=== PATIENT | female | born 1970 | race Caucasian/White ===

== ENCOUNTER 2017-03-13 19:59 | Emergency (ER) | payer OTHER ==
[~2017-03-13 19:59] MED LIST: NAPROSYN500 M1 PO
[2017-03-13 20:40] LABS: ABSOLUTE BASOPHIL COUNT 0.1 /CUMM (0.0-0.2); ABSOLUTE EOSINOPHIL COUNT 0.1 /CUMM (0.0-0.7); ABSOLUTE GRANULOCYTE CT 3.2 /CUMM (1.4-6.5); ABSOLUTE LYMPH COUNT 2.6 /CUMM (1.2-3.4); ABSOLUTE MONOCYTE COUNT 0.7 /CUMM (0.10-0.60); EOSINOPHIL % 1.7 % (0-5); GRANULOCYTE % 48.4 % (42.2-75.2); HEMATOCRIT 34.5 % (37-47); MEAN CORPUSCULAR HGB 29.3 PG (27.0-31.0); MEAN CORPUSCULAR HGB CONC 33.2 G/DL (33.0-37.0); MEAN CORPUSCULAR VOLUME 88.5 FL (81.0-99.0); MEAN PLATELET VOLUME 6.2 FL (7.4-10.4); PLATELET COUNT 406 /CUMM (130-400); RBC DISTRIBUTION WIDTH 13.5 % (11.5-14.5); WHITE BLOOD CELL COUNT 6.6 /CUMM (4.8-10.8)
--- NOTE | 2017-03-13 21:43 | ED GENERAL ADULT ---
History of Present Illness General Chief Complaint: General Adult Stated Complaint: PT DIZZY AND WHEN SHE BREATH CHEST HURT Source: patient, family Exam Limitations: no limitations Vital Signs & Intake/Output Vital Signs & Intake/Output Vital Signs Date Time Temp Pulse Resp B/P B/P Pulse O2 O2 Flow FiO2 Mean Ox Delivery Rate 03/13 2241 96.0 50 16 108/59 99 Room Air 03/136 97 Room Air Room Air 03/13 2009 98.2 71 20 117/75 95 Room Air ED Intake and Output 03/14 0000 03/13 1200 Intake Total Output Total Balance Patient 140 lb Weight Allergies Coded Allergies: No Known Allergies (07/06/16) Reconcile Medications Naproxen (Naprosyn) 500 MG TABLET 1 TAB PO BID PRN pain and inflammation Triage Note: PER PT FOR GREATER THEN 1 WEEK DIZZYNESS AND HEART POUNDING FEELS LIKE CANT GET IN A DEEP BREATH, PT IS A AVID HIKER, AND HAS NOT SOUGHT MEDICAL ATTENTION BUT DOES NOT FEEL ANY BETTER. Triage Nurses Notes Reviewed? yes Onset: Afternoon Duration: day(s): Timing: recent history Severity: moderate No Modifying Factors: none LMP (ages 10-50): LAST WEEK HPI: 46-year-old female presents to emergency department complaining of dizziness. Patient states that dizziness began one week ago and was associated with chest pressure, dyspnea, and heart palpitations. Her symptoms have been intermittent however persistent for the past week. Chest pressure is described as mild, substernal, associated only with deep inspiration. She also complains of sharp stabbing joint paints described as "nerve pains". She also notes uncomfortable feeling in her throat with swallowing however no regurgitation or vomiting. She is an avid hiker and has Pulled four Ticks off Her This Month. She denies rash, fevers, chills, recent infections, dysuria, cough, changes in bowel movements. (TYLER ZUNIGA) Past History Travel History Traveled to [place] past 21 day No Medical History Any Pertinent Medical History? see below for history Neurological: NONE EENT: NONE Cardiovascular: NONE Respiratory: NONE Gastrointestinal: NONE Hepatic: NONE Renal: KIDNEY INFECTIONS Musculoskeletal: TAILBONE FX Psychiatric: NONE Endocrine: NONE Blood Disorders: NONE Cancer(s): NONE GEOLOGICAL TECHNICAL OFFICER/Reproductive: NONE Surgical History Surgical History: non-contributory Psychosocial History What is your primary language Kyrgyz Tobacco Use: Never used Family History Family History, If Any: grandfather, , Age 58; Cause: Myocardial infarct. Hx Contributory? Yes (TYLER ZUNIGA) Review of Systems Review of Systems Constitutional: Reports: see HPI. EENTM: Reports: no symptoms. Respiratory: Reports: see HPI. Cardiovascular: Reports: see HPI. GI: Reports: see HPI. Genitourinary: Reports: no symptoms. Musculoskeletal: Reports: see HPI. Skin: Reports: no symptoms. Neurological/Psychological: Reports: see HPI. Hematologic/Endocrine: Reports: no symptoms. Immunologic/Allergic: Reports: no symptoms. All Other Systems: Reviewed and Negative (TYLER ZUNIGA) Physical Exam Physical Exam General Appearance: well developed/nourished, no apparent distress, alert, awake Head: atraumatic, normal appearance Eyes: Bilateral: normal appearance, PERRL. Ears, Nose, Throat: hearing grossly normal Neck: normal inspection, supple, full range of motion Respiratory: normal breath sounds, no respiratory distress, lungs clear Cardiovascular: regular rate/rhythm Gastrointestinal: normal bowel sounds, soft, non-tender, no organomegaly Back: normal inspection, normal range of motion Extremities: normal inspection, normal range of motion Neurologic/Psych: no motor/sensory deficits, awake, alert, oriented x 3 Skin: intact, normal color, no evidence of rash Core Measures ACS in differential dx? Yes CVA/TIA Diagnosis: No Severe Sepsis Present: No Septic Shock Present: No (TYLER ZUNIGA) Progress Differential Diagnoses I considered the following diagnoses in my evaluation of the patient: [PE, ACS, Lyme disease, viral illness, vertigo, dehydration] Plan of Care: Orders Procedure Date/time Status TROPONIN LEVEL 03/13 2330 Complete EKG 03/13 2330 Active Add-on Test (ER Only) 03/13 2110 Active LYME TITRE 03/13 2034 Active TROPONIN LEVEL 03/13 2011 Complete HUMAN BETA HCG SCREEN 03/13 2011 Complete COMPREHENSIVE METABOLIC PANEL 03/13 2011 Complete CBC WITHOUT DIFFERENTIAL 03/13 2011 Complete EKG 03/13 2010 Active Laboratory Tests 03/13/17 2345: Troponin I < 0.01 03/13/172033: Anion Gap 6, Estimated GFR > 60, BUN/Creatinine Ratio 17.1, Glucose 99, Calcium 9.0, Total Bilirubin 0.3, AST 36, ALT 18, Alkaline Phosphatase 36, Troponin I < 0.01, Total Protein 6.4, Albumin 3.6, Globulin 2.8, Albumin/Globulin Ratio 1.3, Total Beta HCG NEGATIVE, CBC w Diff NO MAN DIFF REQ, RBC 3.90 L, MCV 88.5, MCH 29.3, RDW 13.5, MPV 6.2 L, Gran % 48.4, Lymphocytes % 39.0, Monocytes % 9.9 H, Eosinophils % 1.7, Basophils % 1.0, Absolute Granulocytes 3.2, Absolute Lymphocytes 2.6, Absolute Monocytes 0.7 H, Absolute Eosinophils 0.1, Absolute Basophils 0.1, PUBS MCHC 33.2, Lyme Disease Antibody Pending 03/13/172010: D-Dimer High Sensitivty Cancelled Patient is laying in bed comfortably, she is in no acute distress. She appears calm and rested. Her well's criteria score was 0. She was perc negative. Suspicion for DVT/PE is low at this time. Her first troponin is within normal limits. She was discussed with Dr. Samayoa. Second troponin will be ordered. Lyme titer drawn given exposure to ticks, tick embedded in the skin for possibly multiple days. Her dizziness is associated with movement such as bending over and intermittent, suspicion is low for a central cause of this dizziness such as stroke. (TYLER ZUNIGA) Diagnostic Imaging: Viewed by Me: Radiology Read. Discussed w/RAD: Radiology Read. Radiology Impression: EXAM TYPE: RAD - XRY-PORTABLE CHEST XRAY EXAMINATION: XR PORTABLE CHEST CLINICAL INFORMATION: Chest pain. COMPARISON: None TECHNIQUE: Portable frontal view of the chest was obtained. 9:33 PM FINDINGS: No significant abnormality is noted involving the heart, lungs, mediastinum, bony thorax or soft tissues. IMPRESSION: Unremarkable examination. Initial ED EKG: normal intervals, normal p-waves, normal QRS complex, normal sinus rhythm, rate (59) Repeat EKG: unchanged (sinus gregory) (TYLER ZUNIGA) Departure Departure Disposition: HOME OR SELF CARE Condition: Stable Clinical Impression Primary Impression: Atypical chest pain Secondary Impressions: Dizziness Referrals: JORGE CASTILLO PhD,ONUR Torres UNKNOWN (PCP/Family) Additional Instructions: Repeat Lyme titer in 4 weeks. We will call you with the results of today's Lyme titer. Follow-up with your primary care doctor for further workup such as thyroid blood work and vitamin deficiency screening. Return with any worsening symptoms or concerns. Follow-up with microelectronics engineer provided. Please go over all results of today's visit with your primary care doctor. Contact your primary care doctor to let them know you were here in the emergency room. There may be nonspecific findings which may not be related to your visit today here in the emergency room but may require further evaluation and chronic monitoring by your primary care doctor. If you had a laceration today the chance of foreign body always remains. You should follow-up with your primary care doctor for recheck in 3-5 days for a wound check. If you had an x-ray done there is a chance that a fracture could have been missed on initial read and you should follow-up with your primary care doctor for repeat x-rays if symptoms persist. If your blood pressure was elevated here in the emergency room please have rechecked by her primary care doctor within the next 48 hours by your primary care doctor. If you were prescribed a narcotic here in the emergency room or any type of controlled substances you're not allowed to drive while taking this medication or operate any type of heavy machinery. Narcotics can make you feel lightheaded dizziness nausea and can cause constipation. You may need to nut picker a stool softener. Thank you for choosing [facility] emergency room. Please return to the emergency room immediately if you have any other concerns worsening of symptoms. Departure Forms: Customer Survey General Discharge Information (TYLER ZUNIGA) PA/SUPERVISOR SEWER SYSTEM Co-Sign Statement Statement: ED Attending supervision documentation- [] I saw and evaluated the patient. I have also reviewed all the pertinent lab results and diagnostic results. I agree with the findings and the plan of care as documented in the PA's/SUPERVISOR SEWER SYSTEM's documentation. [x] I have reviewed the ED Record and agree with the PA's/SUPERVISOR SEWER SYSTEM's documentation. [] Additions or exceptions (if any) to the PAs/SUPERVISOR SEWER SYSTEM's note and plan are summarized below: [] (CARLTON CASTILLO,MAYNOR Gay) Critical Care Note Critical Care Note Critical Care Time: non-applicable (TYLER ZUNIGA)
--- NOTE | 2017-03-13 22:06 | RADIOLOGY REPORT ---
EXAMINATION: XR PORTABLE CHEST CLINICAL INFORMATION: Chest pain. COMPARISON: None TECHNIQUE: Portable frontal view of the chest was obtained. 9:33 PM FINDINGS: No significant abnormality is noted involving the heart, lungs, mediastinum, bony thorax or soft tissues. IMPRESSION: Unremarkable examination.
[2017-03-13 22:41] VITALS: BP 108/59
== END 2017-03-14 00:48 ==
LOC: ERH 19:59
PROVIDERS: Pediatrics
DX: R07.89 Other chest pain (principal); R42 Dizziness and giddiness
CPT/HCPCS: 86618; 93005; 93010